=== PATIENT | female | born 1995 | race Caucasian/White ===

== ENCOUNTER 2018-06-29 18:46 | Emergency (ER) | payer MEDICAID ==
[~2018-06-29] VITALS: Ht 162.6 cm; Wt 58.5 kg
[2018-06-29 18:52] VITALS: BP 110/73
[2018-06-29 20:04] LABS: Basophils # (auto) 0 uL; Basophils % (auto) 0.1 % (0.0-2.0); Eosinophils # (auto) 0 uL; Eosinophils % (auto) 0.3 % (0.0-7.0); Hematocrit 37.5 % (36.0-46.0); Hemoglobin 13.3 g/dL (12.2-16.2); Lymphocytes # (auto) 1.5 uL; Lymphocytes % (auto) 15.7 % (10.0-50.0); Mean Corpuscular Hemoglobin 29.8 pg (28.0-32.0); Mean Corpuscular Hgb Conc. 35.4 g/dL (32.0-36.0); Mean Corpuscular Volume 84.4 fL (80.0-100.0); Monocytes # (auto) 0.6 uL; Monocytes % (auto) 6.7 % (0.0-12.0); Neutrophils # (auto) 7.3 uL; Neutrophils % (auto) 77.2 % (37.0-80.0); Nucleated Red Blood Cells % 0.1 %; Platelet Count (auto) 192 10^3/uL (140-450); Red Blood Cells 4.44 10^6/uL (4.0-5.20); Red Cell Distribution Width 13.3 % (11.8-14.3); White Blood Cell 9.4 10^3/uL (4.4-10.8)
[2018-06-29 20:15] LABS: Albumin 3.3 g/dL (3.4-5.0); Calcium 8.7 mg/dL (8.5-10.1); Potassium 3.6 mmol/L (3.5-5.1)
[2018-06-29 20:18] LABS: BUN/Creatinine Ratio 19.6; Bilirubin, Total 0.2 mg/dL (0.2-1.0); Total Protein 7.1 g/dL (6.4-8.2)
[2018-06-29 22:10] LABS: Urine Bacteria NONE SEEN /hpf (None Seen); Urine Blood Negative /uL (Negative); Urine Mucus FEW (None Seen); Urine Specific Gravity 1.024 (1.001-1.035); Urine WBC 2 /hpf (0 - 5)
== END 2018-06-30 04:08 | disposition home or self-care (01) ==
LOC: ER 18:52
DX: O23.41 Unspecified infection of urinary tract in pregnancy, first trimester (principal); Z3A.14 14 weeks gestation of pregnancy; Z91.040 Latex allergy status
CPT/HCPCS: 36415; 76805; 80053; 81001; 82962; 84702; 85025; 93005

== ENCOUNTER 2018-11-20 10:40 | Observation (INO) | payer MEDICAID | END 2018-11-20 11:55 | disposition home or self-care (01) | DRG 566 | LOC: LDRP 10:40 | PROVIDERS: ADMIT Obstetrics & Gynecology; ATTEND Obstetrics & Gynecology | DX: O36.5930 Maternal care for other known or suspected poor fetal growth, third trimester, not applicable or unspecified (principal); O26.893 Other specified pregnancy related conditions, third trimester; R06.02 Shortness of breath; R07.89 Other chest pain; Z3A.35 35 weeks gestation of pregnancy | CPT/HCPCS: 59025; 76818; 81002; G0378 ==

== ENCOUNTER 2018-11-20 12:01 | Emergency (ER) | payer MEDICAID ==
[~2018-11-20] VITALS: Ht 162.6 cm; Wt 70.3 kg
[2018-11-20 13:58] LABS: Basophils # (auto) 0 uL; Basophils % (auto) 0.1 % (0.0-2.0); Eosinophils # (auto) 0 uL; Eosinophils % (auto) 0.3 % (0.0-7.0); Hematocrit 37.1 % (36.0-46.0); Hemoglobin 12.7 g/dL (12.2-16.2); Lymphocytes # (auto) 2.4 uL; Lymphocytes % (auto) 21.4 % (10.0-50.0); Mean Corpuscular Hemoglobin 30.3 pg (28.0-32.0); Mean Corpuscular Hgb Conc. 34.2 g/dL (32.0-36.0); Mean Corpuscular Volume 88.6 fL (80.0-100.0); Monocytes # (auto) 0.6 uL; Monocytes % (auto) 5.5 % (0.0-12.0); Neutrophils % (auto) 72.7 % (37.0-80.0); Platelet Count (auto) 213 10^3/uL (140-450); Red Blood Cells 4.18 10^6/uL (4.0-5.20); Red Cell Distribution Width 13.9 % (11.8-14.3)
[2018-11-20 14:19] LABS: Alanine Aminotransferase 19 U/L (13-56); Albumin 3.1 g/dL (3.4-5.0); Anion Gap 11 (5-15); Aspartate Aminotransferase 15 U/L (15-37); Blood Urea Nitrogen 7 mg/dL (7-18); Calcium 8.6 mg/dL (8.5-10.1); Carbon Dioxide 21 mmol/L (21-32); Chloride 109 mmol/L (98-107); GFR African American 197 mL/min; GFR Non-African American 163 mL/min; Glucose 71 mg/dL (74-106); Sodium 141 mmol/L (136-145)
[2018-11-20 14:24] LABS: Alkaline Phosphatase 132 U/L (45-117); Bilirubin, Total 0.4 mg/dL (0.2-1.0); Total Protein 7.3 g/dL (6.4-8.2)
[2018-11-20 14:32] VITALS: BP 97/55
== END 2018-11-20 14:34 | disposition home or self-care (01) ==
LOC: ER 12:10
DX: O26.893 Other specified pregnancy related conditions, third trimester (principal); R00.2 Palpitations; Z91.040 Latex allergy status; Z3A.35 35 weeks gestation of pregnancy
CPT/HCPCS: 36415; 80053; 83735; 84484; 85025; 93005

== ENCOUNTER 2018-11-28 11:05 | Observation (INO) | payer MEDICAID | END 2018-11-28 13:15 | disposition home or self-care (01) | DRG 566 | LOC: LDRP 11:05 | PROVIDERS: ADMIT Specialist; ATTEND Specialist | DX: O26.893 Other specified pregnancy related conditions, third trimester (principal); F41.0 Panic disorder [episodic paroxysmal anxiety]; R06.02 Shortness of breath; R42 Dizziness and giddiness; O99.343 Other mental disorders complicating pregnancy, third trimester; Z3A.36 36 weeks gestation of pregnancy; Z91.040 Latex allergy status | CPT/HCPCS: 59025; 76818; 81002; G0378 ==

== ENCOUNTER 2018-12-05 20:10 | Observation (INO) | payer MEDICAID ==
[2018-12-05] MEDS ORDERED: PREN-153 OR (21:11)
== END 2018-12-05 23:40 | disposition home or self-care (01) | DRG 566 ==
LOC: LDRP 20:10
PROVIDERS: ADMIT Specialist; ATTEND Specialist
DX: O36.5930 Maternal care for other known or suspected poor fetal growth, third trimester, not applicable or unspecified (principal); F41.9 Anxiety disorder, unspecified; O99.343 Other mental disorders complicating pregnancy, third trimester; Z3A.37 37 weeks gestation of pregnancy; Z91.040 Latex allergy status
CPT/HCPCS: 59025; 76818; 81002; G0378

== ENCOUNTER 2018-12-07 18:09 | Observation (INO) | payer MEDICAID ==
[~2018-12-07] VITALS: Ht 162.6 cm; Wt 72.6 kg
[~2018-12-07 18:09] MED LIST: PREN-153 OR
== END 2018-12-07 19:03 | disposition home or self-care (01) | DRG 566 ==
LOC: LDRP 18:09
PROVIDERS: ADMIT Specialist; ATTEND Specialist
DX: O26.893 Other specified pregnancy related conditions, third trimester (principal); M54.9 Dorsalgia, unspecified; R10.9 Unspecified abdominal pain; R42 Dizziness and giddiness; O99.513 Diseases of the respiratory system complicating pregnancy, third trimester; J45.909 Unspecified asthma, uncomplicated; O99.343 Other mental disorders complicating pregnancy, third trimester; F99 Mental disorder, not otherwise specified; Z3A.37 37 weeks gestation of pregnancy
CPT/HCPCS: 59025; 81002; G0378

== ENCOUNTER 2018-12-11 14:16 | Observation (INO) | payer MEDICAID | END 2018-12-11 15:20 | disposition home or self-care (01) | DRG 566 | LOC: LDRP 14:16 | PROVIDERS: ADMIT Specialist; ATTEND Specialist | DX: O36.5930 Maternal care for other known or suspected poor fetal growth, third trimester, not applicable or unspecified (principal); F99 Mental disorder, not otherwise specified; O99.513 Diseases of the respiratory system complicating pregnancy, third trimester; J45.909 Unspecified asthma, uncomplicated; O99.343 Other mental disorders complicating pregnancy, third trimester; Z3A.38 38 weeks gestation of pregnancy | CPT/HCPCS: 59025; 76818; 81002; G0378 ==

== ENCOUNTER 2018-12-19 09:16 | Observation (INO) | payer MEDICAID | END 2018-12-23 16:00 | disposition home or self-care (01) | DRG 566 | LOC: LDRP 12-23 14:06 | PROVIDERS: ADMIT Obstetrics & Gynecology; ATTEND Obstetrics & Gynecology | DX: O36.5930 Maternal care for other known or suspected poor fetal growth, third trimester, not applicable or unspecified (principal); Z3A.39 39 weeks gestation of pregnancy | CPT/HCPCS: 59025; 76818; 81002; G0378 ==

== ENCOUNTER 2018-12-19 16:30 | Observation (INO) | payer MEDICAID | END 2018-12-19 18:05 | disposition home or self-care (01) | DRG 566 | LOC: LDRP 16:30 | PROVIDERS: ADMIT Specialist; ATTEND Specialist | DX: O36.5930 Maternal care for other known or suspected poor fetal growth, third trimester, not applicable or unspecified (principal); Z3A.39 39 weeks gestation of pregnancy | CPT/HCPCS: 59025; 81002; G0378 ==

== ENCOUNTER 2018-12-25 13:31 | Observation (INO) | payer MEDICAID | END 2018-12-25 17:02 | disposition home or self-care (01) | DRG 566 | LOC: LDRP 13:31 | PROVIDERS: ADMIT Specialist; ATTEND Specialist | DX: O36.5930 Maternal care for other known or suspected poor fetal growth, third trimester, not applicable or unspecified (principal); O26.893 Other specified pregnancy related conditions, third trimester; R10.31 Right lower quadrant pain; R10.32 Left lower quadrant pain; Z3A.40 40 weeks gestation of pregnancy | CPT/HCPCS: 59025; 76818; 81002; G0378 ==

== ENCOUNTER 2018-12-27 00:15 | Observation (INO) | payer MEDICAID ==
[~2018-12-27] VITALS: Ht 162.6 cm; Wt 75.3 kg
== END 2018-12-27 01:00 | disposition home or self-care (01) | DRG 566 ==
LOC: LDRP 00:15
PROVIDERS: ADMIT Obstetrics & Gynecology; ATTEND Obstetrics & Gynecology
DX: O42.92 Full-term premature rupture of membranes, unspecified as to length of time between rupture and onset of labor (principal); Z3A.40 40 weeks gestation of pregnancy; Z91.040 Latex allergy status
CPT/HCPCS: 59025; 81002; G0378

== ENCOUNTER 2018-12-27 14:20 | Observation (INO) | payer MEDICAID | END 2018-12-27 16:55 | disposition home or self-care (01) | DRG 566 | LOC: LDRP 14:20 | PROVIDERS: ADMIT Obstetrics & Gynecology; ATTEND Obstetrics & Gynecology | DX: O48.0 Post-term pregnancy (principal); O26.893 Other specified pregnancy related conditions, third trimester; R10.2 Pelvic and perineal pain; Z3A.40 40 weeks gestation of pregnancy; Z91.040 Latex allergy status | CPT/HCPCS: 59025; 76818; 81002; G0378 ==

== ENCOUNTER 2018-12-27 21:47 | Inpatient (IN) | payer MEDICAID ==
[~2018-12-27] VITALS: Ht 162.6 cm; Wt 75.3 kg
[2018-12-27] MEDS ORDERED: LACT. RINGERS/OXYTOCIN 20UNITS 1,000 ML IV SCH (22:07)
[2018-12-27] MEDS ORDERED: LACTATED RINGER'S 1,000 ML IV SCH (22:07)
[2018-12-27] MEDS ORDERED: PROMETHAZINE HCL 25 MG/ML 1ML IV PRN (22:15)
[2018-12-27] MEDS ORDERED: LIDOCAINE 2%HCL (LOCAL ANESTH.) INJ 20ML MDV ID ONE (22:15)
[2018-12-27] MEDS ORDERED: WITCH HAZEL-GLYCERIN PAD TOP PRN (22:15)
[2018-12-27] MEDS ORDERED: PHISODERM TOP SOLN 240ML BTL TOP PRN (22:15)
[2018-12-27] MEDS ORDERED: NALBUPHINE HCL 10 MG/1ml INJECTION IV PRN (22:15)
[2018-12-27] MEDS ORDERED: DERMOPLAST 60ML BOTTLE TOP PRN (22:15)
[2018-12-27] MEDS ORDERED: METHYLERGONOVINE MALEATE 0.2 MG/ML AMP IM PRN (22:15)
[2018-12-27 22:58] LABS: Urine Blood 2+ /uL (Negative); Urine Specific Gravity 1.029 (1.001-1.035)
[2018-12-27 23:04] LABS: Basophils # (auto) 0 uL; Basophils % (auto) 0.1 % (0.0-2.0); Eosinophils # (auto) 0 uL; Eosinophils % (auto) 0.2 % (0.0-7.0); Hematocrit 33.2 % (36.0-46.0); Hemoglobin 11.1 g/dL (12.2-16.2); Lymphocytes # (auto) 1.6 uL; Lymphocytes % (auto) 12.5 % (10.0-50.0); Mean Corpuscular Hemoglobin 29.8 pg (28.0-32.0); Mean Corpuscular Hgb Conc. 33.5 g/dL (32.0-36.0); Monocytes # (auto) 0.7 uL; Monocytes % (auto) 5.8 % (0.0-12.0); Neutrophils # (auto) 10.1 uL; Neutrophils % (auto) 81.4 % (37.0-80.0); Platelet Count (auto) 168 10^3/uL (140-450); Red Blood Cells 3.73 10^6/uL (4.0-5.20); Red Cell Distribution Width 14.3 % (11.8-14.3); White Blood Cell 12.5 10^3/uL (4.4-10.8)
[2018-12-27 23:10] LABS: INR 0.93 (0.9-1.15); Partial Thromboplastin Time 30.5 sec (23.64-32.05)
[2018-12-27 23:18] LABS: Albumin 2.5 g/dL (3.4-5.0); Calcium 8.3 mg/dL (8.5-10.1); Potassium 3.2 mmol/L (3.5-5.1)
[2018-12-27 23:22] LABS: Bilirubin, Total 0.2 mg/dL (0.2-1.0)
[2018-12-28 00:06] LABS: Alcohol, Urine < 3.0 mg/dL (0-5); Amphetamine Screen, Urine NEGATIVE (NEGATIVE); Barbiturate Scree,Urine NEGATIVE (NEGATIVE); Benzodiazephine Screen, Urine NEGATIVE (NEGATIVE); Cannabinoid Screen, Urine NEGATIVE (NEGATIVE); Cocaine Screen, Urine NEGATIVE (NEGATIVE); Opiate Scree,Urine NEGATIVE (NEGATIVE); Phencyclidine Screen, Urine NEGATIVE (NEGATIVE)
[2018-12-28] MEDS ORDERED: LACTATED RINGER'S 500 ML IV ONE (00:25)
[2018-12-28] MEDS ORDERED: ePHEDrine SULFATE 50 MG/ML AMP IV ONE (00:30)
[2018-12-28] MEDS ORDERED: NALOXONE HCL 0.4 MG/ML VIAL IV ONE (00:30)
[2018-12-28] MEDS ORDERED: fentaNYL W ROPIVACAINE 150 ML EPI SCH (00:30)
[2018-12-28] MEDS ORDERED: LACTATED RINGER'S 1,000 ML IV ONE (01:45)
[2018-12-28] MEDS ORDERED: AMMONIA 0.33 ML INHALANT IN ONE (04:00)
[2018-12-28 06:10] VITALS: BP 105/59
--- NOTE | 2018-12-28 06:10 | NUR ---
Ambulation: Patient OOB with standby assistance by RN. Patient ambulated to bathroom with steady gait. Patient able to void 900ML without difficulty. [facility] teaching provided with returned demonstration by patient. Clean gown provided and bed linen changed. Patient ambulated back to bed with steady gait and no distress noted.
[2018-12-28 06:30] VITALS: BP 104/60
--- NOTE | 2018-12-28 06:40 | NUR ---
PT REPORT GIVEN TO Loco TAN RN ON STABLE PATIENT, RELINQUISHED CARE.
[2018-12-28] MEDS: IBUPROFEN 600 MG TAB PO PRN ×3 (10:17→22:24)
[2018-12-28 11:30] VITALS: BP 101/57
[2018-12-28] MEDS: ACETAMINOPHEN 325 MG TAB PO PRN ×2 (12:43→20:49)
--- NOTE | 2018-12-28 12:50 | NUR ---
: Pt requests help . Pt educated on positioning, latch and supply and demand. Pt nipples are flat and is having difficulty latching. Nipple shield provided to the patient at this time, pt educated on use, verbalizes understanding and returns demonstration. Audible suck swallow noted, and good latch noted.
[2018-12-28 15:00] VITALS: BP 99/53
[2018-12-28 23:00] VITALS: BP 104/62
[2018-12-29 03:00] VITALS: BP 96/58
[2018-12-29] MEDS: ACETAMINOPHEN 325 MG TAB PO PRN (03:58)
[2018-12-29 07:29] VITALS: BP 121/73
--- NOTE | 2018-12-29 09:00 | NUR ---
Discharge: Discharge instructions given as ordered. Pt encouraged to follow up with [facility] as instructed. All questions and concerns addressed. Patient verbalized understanding. Medication reconciliation completed and copy given to patient. All required/requested vaccines given and copies of vaccinations given to patient. Patient encouraged to prepare to depart unit.
[2018-12-29] MEDS: IBUPROFEN 600 MG TAB PO PRN (09:48)
[2018-12-29 11:30] VITALS: BP 111/75
--- NOTE | 2018-12-29 12:40 | NUR ---
Discharge: Patient taken to vehicle via wheelchair with all personal belongings, accompanied by staff and family member. No distress noted at time of departure, no adverse changes in status since initial assessment.
[2018-12-30 11:08] LABS: RPR Non Reactive (Non Reactive)
== END 2018-12-29 12:40 | disposition home or self-care (01) | DRG 560 ==
LOC: LDRP 21:47 → OBSVTOIN 21:58 → LDRP 12-28 17:37
PROVIDERS: ADMIT Obstetrics & Gynecology; ATTEND Obstetrics & Gynecology
PROC: 10D07Z6 Extraction of Products of Conception, Vacuum, Via Natural or Artificial Opening (ICD-10-PCS; principal; 2018-12-28)
PROC: 0KQM0ZZ Repair Perineum Muscle, Open Approach (ICD-10-PCS; 2018-12-28)
PROC: 3E0R3BZ Introduction of Anesthetic Agent into Spinal Canal, Percutaneous Approach (ICD-10-PCS; 2018-12-28)
PROC: 00HU33Z Insertion of Infusion Device into Spinal Canal, Percutaneous Approach (ICD-10-PCS; 2018-12-28)
DX: O69.81X0 Labor and delivery complicated by cord around neck, without compression, not applicable or unspecified (principal); O66.5 Attempted application of vacuum extractor and forceps; O70.1 Second degree perineal laceration during delivery; O71.82 Other specified trauma to perineum and vulva; Z37.0 Single live birth; Z3A.40 40 weeks gestation of pregnancy; Z91.040 Latex allergy status
CPT/HCPCS: 36415; 51702; 59025; 59409; 62282; 80053; 80307; 81002; 81003; 84112; 85025; 85610; 85730; 86592; 86850; 86900; 86901; 94760; 96375; G0378; J2590; J3010

== ENCOUNTER 2020-01-12 12:30 | Observation (INO) | payer MEDICAID | END 2020-01-12 13:25 | disposition home or self-care (01) | LOC: LDRP 12:30 | PROVIDERS: ADMIT Obstetrics & Gynecology; ATTEND Obstetrics & Gynecology | DX: O62.9 Abnormality of forces of labor, unspecified (principal); Z3A.35 35 weeks gestation of pregnancy | CPT/HCPCS: 59025; 81002; G0378 ==

== ENCOUNTER 2020-02-12 13:48 | Observation (INO) | payer MEDICAID | END 2020-02-12 15:44 | disposition home or self-care (01) | LOC: LDRP 13:48 | PROVIDERS: ADMIT Obstetrics & Gynecology; ATTEND Obstetrics & Gynecology | DX: O48.0 Post-term pregnancy (principal); Z3A.40 40 weeks gestation of pregnancy | CPT/HCPCS: 59025; 76818; 81002; G0378 ==

== ENCOUNTER 2020-02-13 13:06 | Inpatient (IN) | payer MEDICAID ==
[2020-02-13] MEDS ORDERED: METHYLERGONOVINE MALEATE 0.2 MG/ML AMP IM PRN (13:30)
[2020-02-13] MEDS ORDERED: LACTATED RINGER'S 1,000 ML IV SCH (13:30)
[2020-02-13] MEDS ORDERED: LIDOCAINE 2%HCL (LOCAL ANESTH.) INJ 20ML MDV ID ONE (13:30)
[2020-02-13] MEDS ORDERED: PENICILLIN G POT 5MIL/D5 50ML 50 ML IV ONE (13:30)
[2020-02-13] MEDS ORDERED: NALBUPHINE HCL 10 MG/1ml INJECTION IV PRN (13:30)
[2020-02-13] MEDS ORDERED: LACT. RINGERS/OXYTOCIN 20UNITS 1,000 ML IV SCH (13:30)
[2020-02-13] MEDS ORDERED: PHISODERM TOP SOLN 240ML BTL TOP PRN (13:30)
[2020-02-13] MEDS: DERMOPLAST 60ML BOTTLE TOP PRN (14:32)
[2020-02-13] MEDS: WITCH HAZEL-GLYCERIN PAD TOP PRN ×2 (14:32→19:18)
[2020-02-13 14:51] LABS: Basophils # (auto) 0 10 ^3/uL (0-0.2); Basophils % (auto) 0.1 % (0.0-2.0); Eosinophils # (auto) 0 10 ^3/uL (0-0.8); Eosinophils % (auto) 0.2 % (0.0-7.0); Hematocrit 34.3 % (36.0-46.0); Hemoglobin 11.3 g/dL (12.2-16.2); Lymphocytes # (auto) 1.6 10 ^3/uL (0.4-5.4); Lymphocytes % (auto) 10.6 % (10.0-50.0); Mean Corpuscular Hemoglobin 27.5 pg (28.0-32.0); Mean Corpuscular Hgb Conc. 32.9 g/dL (32.0-36.0); Mean Corpuscular Volume 83.6 fL (80.0-100.0); Monocytes # (auto) 0.7 10 ^3/uL (0-1.3); Monocytes % (auto) 4.7 % (0.0-12.0); Neutrophils # (auto) 12.7 10 ^3/uL (1.6-8.6); Neutrophils % (auto) 84.4 % (37.0-80.0); Platelet Count (auto) 163 10^3/uL (140-450); Red Cell Distribution Width 15.8 % (11.8-14.3)
[2020-02-13 15:04] LABS: Urine Bacteria FEW /hpf (None Seen); Urine Blood 3+ /uL (Negative); Urine Mucus FEW (None Seen); Urine Specific Gravity 1.026 (1.001-1.035); Urine WBC 3 /hpf (0 - 5)
[2020-02-13 15:06] LABS: INR 0.97 (0.9-1.15); Partial Thromboplastin Time 28.4 sec (23.0-31.2)
[2020-02-13 15:26] LABS: Albumin 2.8 g/dL (3.4-5.0); Calcium 8.4 mg/dL (8.5-10.1); Potassium 3.5 mmol/L (3.5-5.1)
[2020-02-13 15:31] LABS: Bilirubin, Total 0.3 mg/dL (0.2-1.0); Total Protein 6.5 g/dL (6.4-8.2)
[2020-02-13 15:40] LABS: Alcohol, Urine < 3.0 mg/dL (0-10); Amphetamine Screen, Urine NEGATIVE (NEGATIVE); Barbiturate Scree,Urine NEGATIVE (NEGATIVE); Benzodiazephine Screen, Urine NEGATIVE (NEGATIVE); Cannabinoid Screen, Urine NEGATIVE (NEGATIVE); Cocaine Screen, Urine NEGATIVE (NEGATIVE); Opiate Scree,Urine NEGATIVE (NEGATIVE); Phencyclidine Screen, Urine NEGATIVE (NEGATIVE)
[2020-02-13] MEDS: IBUPROFEN 600 MG TAB PO PRN ×3 (16:20→23:11)
[2020-02-13] MEDS ORDERED: PENICILLIN G POTASSIUM 2,500,000 UNITS in D5W 5% 50 ML IV SCH (17:30)
[2020-02-13 18:59] VITALS: BP 107/62
[2020-02-13 23:00] VITALS: BP 114/56
[2020-02-14] MEDS: IBUPROFEN 600 MG TAB PO PRN ×2 (02:33→10:30)
[2020-02-14 02:49] VITALS: BP 101/55
[2020-02-14] MEDS: ACETAMINOPHEN 325 MG TAB PO PRN ×2 (07:02→14:53)
[2020-02-14 07:22] VITALS: BP 97/66
[2020-02-14] MEDS ORDERED: DOCUSATE CALCIUM 240 MG CAP PO SCH (10:00)
[2020-02-14] MEDS: WITCH HAZEL-GLYCERIN PAD TOP PRN (10:30)
[2020-02-14] MEDS: DERMOPLAST 60ML BOTTLE TOP PRN (10:30)
[2020-02-14 10:32] VITALS: BP 106/59
[2020-02-14 14:47] VITALS: BP 102/60
[2020-02-16 08:11] LABS: RPR Non Reactive (Non Reactive)
== END 2020-02-14 16:06 | disposition home or self-care (01) | DRG 560 ==
LOC: LDRP 13:06
PROVIDERS: ADMIT Obstetrics & Gynecology; ATTEND Obstetrics & Gynecology
PROC: 10E0XZZ Delivery of Products of Conception, External Approach (ICD-10-PCS; principal; 2020-02-13)
PROC: 10907ZC Drainage of Amniotic Fluid, Therapeutic from Products of Conception, Via Natural or Artificial Opening (ICD-10-PCS; 2020-02-13)
PROC: 0KQM0ZZ Repair Perineum Muscle, Open Approach (ICD-10-PCS; 2020-02-13)
DX: O70.1 Second degree perineal laceration during delivery (principal); O99.52 Diseases of the respiratory system complicating childbirth; J45.909 Unspecified asthma, uncomplicated; Z3A.40 40 weeks gestation of pregnancy; Z37.0 Single live birth; Z91.040 Latex allergy status
CPT/HCPCS: 36415; 59025; 59409; 80053; 80307; 81001; 84112; 85025; 85610; 85730; 86592; 86850; 86900; 86901; 96360; 96365; G0378; J2540; J2590; J7060

== ENCOUNTER 2023-12-09 20:55 | Emergency (ER) | payer MEDICAID ==
[~2023-12-09] VITALS: Ht 162.6 cm; Wt 78.8 kg
[~2023-12-09 20:55] MED LIST changes: -PREN-153 OR; +PREN1TAB71 OR
[2023-12-10 00:01] VITALS: PULSE 74; RESP 16; O2SAT 96
[2023-12-10] MEDS: CYCLOBENZAPRINE HCL 10 MG TAB PO ONE (00:14)
[2023-12-10] MEDS: KETOROLAC TROMETH 30 MG/ML 1ML VIAL IM ONE (00:14)
[2023-12-10 00:36] VITALS: BP 123/76; PULSE 71; RESP 16; TEMP 98.3; O2SAT 100
[2023-12-10] MEDS ORDERED: IBUP-1455 PO (00:52)
[2023-12-10] MEDS ORDERED: CYCL-839 PO (00:52)
== END 2023-12-10 01:03 | disposition home or self-care (01) ==
LOC: ER 20:55
DX: S16.1XXA Strain of muscle, fascia and tendon at neck level, initial encounter (principal); Z91.040 Latex allergy status; Z79.899 Other long term (current) drug therapy; X58.XXXA Exposure to other specified factors, initial encounter; Y93.89 Activity, other specified; Y92.89 Other specified places as the place of occurrence of the external cause; Y99.8 Other external cause status
CPT/HCPCS: 96372; 99283; J1885